=== PATIENT | female | born 1945 | race Caucasian/White ===

== ENCOUNTER 2018-05-24 13:36 | Emergency (ER) | payer MEDICARE, BC ==
[~2018-05-24] VITALS: Ht 165.1 cm; Wt 87.5 kg
[~2018-05-24 13:36] MED LIST: ADULT LOW DOSE81 MG PO; ALLERGY RELIEF1 EACH PO; CALCIUM 500 +1 EAC5 PO; CLARITIN10 MG PO; CRESTOR5 MG PO; FISH OIL 1,0001 EAC5 PO; FLOVENT DISKUS50 MCG IH; FOSAMAX 70 MG T70 M1 PO; FOSAMAX 70 MG T70 MG PO; L-LYSINE500 M1 PO; LEVOXYL50 MCG PO; LIPITOR10 MG PO; LUTEIN20 MG PO; MACRODANTIN100 MG PO; METFORMIN HCL500 MG PO; METOCLOPRAMIDE 55 M1 PO; MULTIPLE VITAM1 EAC3 PO; NITROGLYCERIN0.4 MG SUBLING; NIZATIDINE150 MG PO; PEXEVA20 MG PO; PRAMIPEXOLE0.125 MG PO; PREVACID15 MG PO
[2018-05-24] MEDS ORDERED: BACTRIM DS TAB1 EACH PO (13:46)
[2018-05-24] MEDS ORDERED: CLARITIN10 MG PO (13:47)
[2018-05-24] MEDS ORDERED: CHOLESTYRAMINE L4 GM PO (13:47)
[2018-05-24] MEDS ORDERED: LASIX 40 MG TAB40 M2 PO (13:47)
[2018-05-24] MEDS ORDERED: COZAAR 25 MG TA25 MG PO (13:47)
[2018-05-24] MEDS ORDERED: PAXIL10 MG PO (13:47)
[2018-05-24] MEDS ORDERED: MOBIC15 MG PO (16:32)
[2018-05-24] MEDS ORDERED: VALIUM5 MG PO (16:32)
[2018-05-24 16:59] VITALS: BP 146/67
== END 2018-05-24 17:00 | disposition home or self-care (01) ==
LOC: M.ERS 13:36
DX: S02.2XXA Fracture of nasal bones, initial encounter for closed fracture (principal); S80.02XA Contusion of left knee, initial encounter; S60.222A Contusion of left hand, initial encounter; S00.83XA Contusion of other part of head, initial encounter; E03.9 Hypothyroidism, unspecified; E78.5 Hyperlipidemia, unspecified; K21.9 Gastro-esophageal reflux disease without esophagitis; F41.9 Anxiety disorder, unspecified; M81.0 Age-related osteoporosis without current pathological fracture; I10 Essential (primary) hypertension; G25.81 Restless legs syndrome; Z90.710 Acquired absence of both cervix and uterus; Z88.8 Allergy status to other drugs, medicaments and biological substances; W01.0XXA Fall on same level from slipping, tripping and stumbling without subsequent striking against object, initial encounter; Y93.89 Activity, other specified; Y92.89 Other specified places as the place of occurrence of the external cause; Y99.8 Other external cause status